=== PATIENT | female | born 1990 ===

== ENCOUNTER 2017-10-12 16:05 | Emergency (ER) | payer OTHER ==
[2017-10-12 16:33] VITALS: BP 118/82; RESP 20; TEMP 99.5; O2SAT 100
[2017-10-12 16:51] VITALS: PULSE 88
--- NOTE | 2017-10-12 17:31 | ED PDOC ---
HPI: CCC, URI, Sore Throat Time Seen by Provider: 10/12/17 16:35 Chief Complaint (Nursing): ENT Problem Chief Complaint (Provider): Nasal Congestion and [place] swelling History Per: Patient History/Exam Limitations: no limitations Have you had recent travel within the past 21 days to any of the following countries: [place], [place], [place] or [place]?: No Onset/Duration Of Symptoms: Days (x6) Location Of Pain: None. denies: Throat Sick Contacts (Context): None Associated Symptoms: Nasal Congestion. denies: Fever, Sore Throat, Cough, Nausea, Vomiting, Diarrhea Ear Symptoms: Bilateral: None Severity: None Additional Complaint(s): 27 year old female presents to the emergency department complaining of swelling around her left ear and nasal congestion. The patient reports that for the past 6 days she has had nasal congestion and today she noticed swelling around her left ear. She states that she also developed bilateral facial pain that worsens when she bends her neck forward. Patient states that she has been taking ibuprofen with minimal relief and her last dose was lastnight. Denies trauma, sore throat, hearing changes, recent travel, sick contacts. PMD: Sandra Zee Past Medical History Reviewed: Historical Data, Nursing Documentation, Vital Signs Vital Signs: Last Vital Signs Temp 99.5 F 10/12/17 16:29 Pulse 88 10/12/17 16:50 Resp 20 10/12/17 16:29 BP 118/82 10/12/17 16:29 Pulse Ox 100 10/12/17 16:29 - Medical History PMH: No Chronic Diseases - Surgical History Surgical History: No Surg Hx - Family History Family History: States: Unknown Family Hx - Living Arrangements Living Arrangements: With Family - Social History Current smoker - smoking cessation education provided: No Ex-Smoker (has not smoked in the last 12 months): No Alcohol: None Drugs: Denies - Home Medications Home Medications: Ambulatory Orders Medication Instructions Recorded Amoxicillin/Clavulanate [Augmentin 1 tab PO BID #20 tab 10/12/17 500 MG-125 MG] Fluticasone Propionate [Flonase] 2 spr NS DAILY PRN #1 bottle 10/12/17 Naproxen [Naprosyn] 500 mg PO BID PRN #10 tab 10/12/17 - Allergies Allergies/Adverse Reactions: Allergies Allergy/AdvReac Type Severity Reaction Status Date / Time shrimp Allergy SWELLING Verified 10/12/17 16:29 Review of Systems Constitutional: Negative for: Fever ENT: Positive for: Nose Congestion, Other (facial swelling and swelling around left ear). Negative for: Throat Pain Physical Exam - Reviewed Nursing Documentation Reviewed: Yes Vital Signs Reviewed: Yes - Physical Exam Appears: Positive for: Non-toxic, No Acute Distress Head Exam: Positive for: ATRAUMATIC, NORMAL INSPECTION, NORMOCEPHALIC Skin: Positive for: Normal Color, Warm, Dry. Negative for: Rash Eye Exam: Positive for: Normal appearance, EOMI, PERRL. Negative for: Nystagmus ENT: Positive for: Pharynx Is (clear), Other (left sided preauricular lymphadenopathy; No parotid swelling bilaterally; No TMJ bilaterally; No trismus able to swallow.). Negative for: Sinus Pain/Drainage (b/l sinus tenderness in malar area), Pharyngeal Erythema, Tonsillar Exudate, Tonsillar Swelling Neck: Positive for: Normal, Painless ROM, Supple Cardiovascular/Chest: Positive for: Regular Rate, Rhythm, Chest Non Tender. Negative for: Tachycardia Respiratory: Positive for: Normal Breath Sounds. Negative for: Rales, Rhonchi, Wheezing, Respiratory Distress Neurologic/Psych: Positive for: Alert, Oriented, Gait - ECG O2 Sat by Pulse Oximetry: 100 Medical Decision Making Medical Decision Makin Initial Impression 27 year old female presenting with facial swelling and nasal congestion Initial Plan: * Reevaluation ANNA LONG, thank you for letting us take care of you today. Your provider was Gibson Shultz MD and you were treated for LT EAR PAIN. The emergency medical care you received today was directed at your acute symptoms. If you were prescribed any medication, please fill it and take as directed. It may take several days for your symptoms to resolve. Return to the Emergency Department if your symptoms worsen, do not improve, or if you have any other problems. Please contact your doctor or call one of the physicians/clinics you have been referred to that are listed on the Patient Visit Information form that is included in your discharge packet. Bring any paperwork you were given at discharge with you along with any medications you are taking to your follow up visit. Our treatment cannot replace ongoing medical care by a primary care provider outside of the emergency department. Thank you for allowing the [facility] team to be part of your care today. Documented by Sandy Stapleton acting as a scribe for Tone Rojas PA-C. All medical record entries made by the Scribe were at my direction and personally dictated by me. I have reviewed the chart and agree that the record accurately reflects my personal performance of the history, physical exam, medical decision making, and the department course for this patient. I have also personally directed, reviewed, and agree with the discharge instructions and disposition. Disposition - Clinical Impression Clinical Impression: Acute sinusitis - Disposition Referrals: [facility] [Outside] Disposition: Routine/Home Disposition Time: 17:12 Condition: STABLE Additional Instructions: Follow up with your PMD for further evaluation. Return to ED immediately if symptoms worsen. Prescriptions: Amoxicillin/Clavulanate [Augmentin 500 MG-125 MG] 1 tab PO BID #20 tab Fluticasone Propionate [Flonase] 2 spr NS DAILY PRN #1 bottle PRN Reason: Allergy Symptoms Naproxen [Naprosyn] 500 mg PO BID PRN #10 tab PRN Reason: Pain Instructions: Sinusitis, Adult (DC) Forms: [facility] (French) Print Language: ESTONIAN - POA Present On Arrival: None
== END 2017-10-12 17:37 | disposition home or self-care (01) ==
LOC: H.ER 16:05
DX: J01.90 Acute sinusitis, unspecified (principal)